=== PATIENT | female | born 1965 | race African-American/Black ===

== ENCOUNTER 2019-12-20 07:35 | Emergency (ER) | payer BC, MEDICAID ==
[~2019-12-20] VITALS: Ht 170.2 cm; Wt 77.0 kg
[2019-12-20] MEDS ORDERED: MORPHINE SULFATE 4 MG/ML CPJ (NOT FOR IM USE) IV ONE (09:00)
[2019-12-20] MEDS ORDERED: ONDANSETRON HCL 4MG/2ML INJ IV ONE (09:00)
[2019-12-20 09:58] LABS: BASOPHILS % 0.9 % (0.0-2.0); EOSINOPHILS % 1.4 % (0.0-5.0); LYMPHOCYTES % 34.7 % (20.0-50.0); MEAN CORPUSCULAR HEMOGLOBIN 30.1 pg (28.0-32.0); MEAN CORPUSCULAR VOLUME 90.7 fL (81.0-99.0); MEAN PLATELET VOLUME 9.1 fl (7.4-10.4); MONOCYTES % 9.1 % (2.0-8.0); NEUTROPHILS % 53.9 % (40.0-76.0); PLATELET 374 x1000/uL (130-400); RED BLOOD CELL COUNT 3.97 mill/uL (4.2-5.4); RED CELL DISTRIBUTION WIDTH 13.3 % (11.6-14.6)
[2019-12-20 10:04] LABS: CHLORIDE 106 mEq/L (98-107)
[2019-12-20 11:47] VITALS: BP 167/84
== END 2019-12-20 12:16 | disposition home or self-care (01) ==
LOC: ER 07:42
DX: M25.552 Pain in left hip (principal); G89.18 Other acute postprocedural pain; I10 Essential (primary) hypertension; Z87.891 Personal history of nicotine dependence; F12.10 Cannabis abuse, uncomplicated
CPT/HCPCS: 36415; 80053; 85025; 93005; 96374; 96375; 99284; J2270; J2405